=== PATIENT | female | born 1930 | race Caucasian/White ===

== ENCOUNTER 2017-05-22 09:40 | Emergency (ER) | payer MEDICARE ==
[~2017-05-22] VITALS: Ht 152.4 cm; Wt 52.0 kg
[2017-05-22 09:46] VITALS: BP 183/81; PULSE 96; RESP 16; TEMP 97.9; O2SAT 98
[2017-05-22] MEDS ORDERED: SIMV10TA PO (10:00)
[2017-05-22] MEDS ORDERED: INSP25TA PO (10:00)
[2017-05-22] MEDS ORDERED: LOSA50TA PO (10:00)
--- NOTE | 2017-05-22 10:08 | RADRPT ---
EXAM DATE/TIME: 05/22/2017 10:00 [place] COMPARISON: No previous studies available for comparison. INDICATIONS : Cough and congestion MEDICAL HISTORY : None. SURGICAL HISTORY : None. ENCOUNTER: Initial ACUITY: 3 days PAIN SCORE: 0/10 LOCATION: Bilateral chest FINDINGS: Lungs are mildly hyperinflated. We level present laterally in the left lung. Minimal parenchymal ch anges right base, nonspecific. The heart and pulmonary vascularity are normal. The portion of the bon y skeleton visualized is unremarkable. CONCLUSION: Hyperinflation with minimal parenchymal changes right base. Paul Frances MD FACR on May 22, 2017 at 10:05 Board Certified Radiologist. This report was verified electronically.
[2017-05-22] MEDS ORDERED: AZIT250T3 PO (10:57)
[2017-05-22] MEDS ORDERED: BENZ100 PO (10:57)
[2017-05-22] MEDS ORDERED: ERYTOIN10 EACH EYE (10:57)
--- NOTE | 2017-05-22 11:02 | PD ---
HPI Chief Complaint: Cold / Flu Symptoms Time Seen by Provider: 09:57 Travel History International Travel<30 days: No Contact w/Intl Traveler<30days: No Traveled to known affect area: No History of Present Illness HPI 86-year-old female here with productive cough 4 days. Denies fever or chills. Recent exposure to the flu. Also complaining of bilateral eye drainage and crusting of the lashes. No eye pain or visual changes. Areas mild to moderate. No aggravating or alleviating factors. No chest pain or shortness of breath. PFSH Past Medical History High Cholesterol: Yes Diminished Hearing: Yes (bilat aids) Hypertension: Yes Tetanus Vaccination: < 5 Years Influenza Vaccination: Yes Past Surgical History Hysterectomy: Yes Social History Alcohol Use: No Tobacco Use: No Substance Use: No Allergies-Medications (Allergen,Severity, Reaction): Coded Allergies: No Known Allergies (Unverified , 05/22/17) Reported Meds & Prescriptions Reported Meds & Active Scripts Active Reported Losartan (Losartan Potassium) 50 Mg Tab 50 Mg PO DAILY Inspra (Eplerenone) 25 Mg Tab 25 Mg PO DAILY Simvastatin 10 Mg Tab 10 Mg PO DAILY Review of Systems Except as stated in HPI: all other systems reviewed are Neg General / Constitutional: No: Fever Eyes: Positive: Drainage, No: Visual changes HENT: No: Headaches Cardiovascular: No: Chest Pain or Discomfort Respiratory: Positive: Cough Gastrointestinal: No: Abdominal Pain Genitourinary: No: Dysuria Physical Exam Narrative GENERAL: Alert and well-appearing 86-year-old female SKIN: Warm and dry. HEAD: Normocephalic. EYES: Mild injection bilaterally. Scant amount of yellow Mucopurulent discharge right eye. Pupils equal, round, reactive to light. EOMs intact. NECK: Supple, trachea midline. No JVD or lymphadenopathy. CARDIOVASCULAR: Regular rate and rhythm without murmurs, gallops, or rubs. RESPIRATORY: Breath sounds equal bilaterally. No accessory muscle use. Rhonchorous cough GASTROINTESTINAL: Abdomen soft, non-tender, nondistended. MUSCULOSKELETAL: No cyanosis, or edema. BACK: Nontender without obvious deformity. No CVA tenderness. Data Data Last Documented VS Vital Signs Date Time Temp Pulse Resp B/P (MAP) Pulse Ox O2 Delivery O2 Flow Rate FiO2 05/22/17 09:46 97.9 96 16 183/81 (115) 98 Orders Orders Influenzae A/B Antigen (05/22/17 09:57) Chest, Single Ap (05/22/17 ) MDM Medical Decision Making Medical Screen Exam Complete: Yes Emergency Medical Condition: Yes Differential Diagnosis Influenza, pneumonia, bronchitis, conjunctivitis Narrative Course 86-year-old female here with productive cough 4 days. She is nontoxic appearing. Her vital signs are stable. She also has conjunctivitis in both eyes. Influenza is negative. Chest x-ray negative. Patient will be treated for bronchitis and conjunctivitis. She is instructed to follow-up with her primary doctor for recheck. She verbalizes understanding and agrees to plan Diagnosis Primary Impression: Bronchitis Additional Impression: Conjunctivitis Qualified Codes: H10.9 - Unspecified conjunctivitis Referrals: Primary Care Physician Additional Instructions: Antibiotics as directed. Tessalon Perles as needed for cough. Rest and stay well hydrated. Follow-up with her primary doctor for recheck. Scripts Benzonatate (Tessalon Perles) 100 Mg Cap 200 MG PO TID Y for COUGH, #14 CAP 0 Refills Prov: Tanisha Soto 05/22/17 Erythromycin Opth Oint (Erythromycin Opth Oint) 5 Mg/Gm Oint 1 APPLIC EACH EYE BID for Infection, #1 TUBE 0 Refills Prov: Tanisha Soto 05/22/17 Azithromycin (Azithromycin) 250 Mg Tab 250 MG PO DIRECTED for Infection, #6 TAB 0 Refills Take 2 tabs (500 mg) on day 1 then 1 tab daily x 4 days. Prov: Tanisha Soto 05/22/17 Disposition: 01 DISCHARGE HOME Condition: Stable Tanisha Soto May 22, 2017 11:02
== END 2017-05-22 11:10 | disposition home or self-care (01) ==
LOC: PHEFT 09:40
DX: J40 Bronchitis, not specified as acute or chronic (principal); H10.9 Unspecified conjunctivitis; E78.00 Pure hypercholesterolemia, unspecified; I10 Essential (primary) hypertension
CPT/HCPCS: 71045; 87804; 99284